=== PATIENT | female | born 1970 | race Caucasian/White ===

== ENCOUNTER 2016-06-02 20:35 | Emergency (ER) | payer BC ==
[2016-06-02] MEDS ORDERED: Acetaminophen/oxyCODONE 325-5 MG Tab PO ONE (22:43)
[2016-06-03 00:19] VITALS: BP 107/65
--- NOTE | 2016-06-03 00:34 | EDM.PDOC ---
ED HPI RENAL/ - General Chief Complaint: Flank Pain Stated Complaint: R BACK PAIN Time Seen by Provider: 06/02/16 22:32 Source: Reports: Patient History Limitations: Reports: No limitations - History of Present Illness INITIAL COMMENTS - FREE TEXT/NARRATIVE: This patient complains of pain in the right area for one week. She hasn't seen a doctor for this. She has a history of kidney stones and previously. She denies any fever she has had some chills. She feels a pulling sensation in the area. She denies burning on urination. She does admit to a history of urinary tract infections and some tiny kidney stones in the past. She has multiple sclerosis - Related Data Allergies/ADRs: Allergies Allergy/AdvReac Type Severity Reaction Status Date / Time erythromycin base Allergy Intermediate Hives Verified 11/19/15 21:19 [Erythromycin Base] Sulfa (Sulfonamide Allergy Intermediate Hives Verified 11/19/15 21:19 Antibiotics) Home Meds: Home Meds Cholecalciferol (Vitamin D3) [Vitamin D] 1,000 unit PO DAILY 11/09/12 [History] Furosemide [Lasix] 20 mg PO DAILY 11/09/12 [History] Ascorbic Acid/Multivit-Min [Emergen-C 1,000 mg Packet] 1 packet PO DAILY [History] Magnesium Citrate 100 gm MC DAILY 06/02/16 [History] Past Medical History HEENT History: Reports: Impaired vision Gastrointestinal History: Reports: Chronic constipation Genitourinary History: Reports: Pyelonephritis, UTI, recurrent 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: Endometriosis, 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, Musculoskeletal History: Reports: Fracture Neurological History: Reports: Concussion, MS Psychiatric History: Reports: ADD Immunologic History: Reports: Other (see below) Other Immunologic History: Pt has MS - Infectious Disease History Infectious Disease History: Reports: Chicken pox - Past Surgical History HEENT Surgical History: Reports: Adenoidectomy, Tonsillectomy GI Surgical History: Reports: Appendectomy, Cholecystectomy Female Surgical History: Reports: Hysterectomy, Salpingo-oophorectomy Social & Family History - Tobacco Use Smoking Status *Q: Never Smoker Second Hand Smoke Exposure: No - Caffeine Use Caffeine Use: Reports: Coffee - Alcohol Use Days Per Week of Alcohol Use: 1 Number of Drinks Per Day: 1 Total Drinks Per Week: 1 - Recreational Drug Use Recreational Drug Use: No ED ROS GENERAL - Review of Systems Review Of Systems: See Below Constitutional: Reports: chills HEENT: Reports: No symptoms Respiratory: Reports: No Symptoms Cardiovascular: Reports: No symptoms Endocrine: Reports: no symptoms GI/Abdominal: Reports: No symptoms : Reports: flank pain Musculoskeletal: Reports: no symptoms Skin: Reports: no symptoms Neurological: Reports: No Symptoms ED EXAM, RENAL/ - Physical Exam Exam: See Below Exam Limited By: No limitations General Appearance: alert, WD/WN, mild distress Eye Exam: bilateral eye: normal inspection Ears: normal external exam Throat/Mouth: Normal oropharynx Respiratory/Chest: no respiratory distress Cardiovascular: normal peripheral pulses, regular rate, rhythm GI/Abdominal: soft, non tender Back Exam: CVA tenderness (R) (There is moderate right CVA tenderness but there also seems to be some paraspinous muscle tenderness adjacent to this) Extremities: normal inspection Neurological: alert, oriented Psychiatric: normal affect Skin Exam: Warm, Dry Course - Vital Signs Last Recorded V/S: Last Vital Signs Temp 37.3 C 06/03/16 00:18 Pulse 78 06/03/16 00:18 Resp 16 06/03/16 00:18 BP 107/65 06/03/16 00:18 Pulse Ox 93 L 06/03/16 00:18 - Orders/Labs/Meds Labs: Laboratory Tests 06/02/16 06/02/16 06/02/16 Range/Units 21:10 23:19 23:32 WBC 11.2 H (4.5-11.0) K/uL RBC 4.50 (3.30-5.50) M/uL Hgb 12.9 (12.0-15.0) g/dL Hct 39.4 (36.0-48.0) % MCV 88 (80-98) fL MCH 29 (27-31) pg MCHC 33 (32-36) % Plt Count 182 (150-400) K/uL Neut % (Auto) 57 (36-66) % Lymph % (Auto) 27 (24-44) % [place] % (Auto) 13 H (2-6) % Eos % (Auto) 2 (2-4) % Baso % (Auto) 1 (0-1) % Sodium 142 (140-148) mmol/L Potassium 3.9 (3.6-5.2) mmol/L Chloride 105 (100-108) mmol/L Carbon Dioxide 28 (21-32) mmol/L Anion Gap 8.7 (5.0-14.0) mmol/L BUN 16 (7-18) mg/dL Creatinine 0.8 (0.6-1.0) mg/dL Est Cr Clr Drug Dosing 80.75 mL/min Estimated GFR (MDRD) > 60 (>60) Glucose 99 (74-106) mg/dL Calcium 8.3 L (8.5-10.1) mg/dL Total Bilirubin 0.2 (0.2-1.0) mg/dL AST 18 (15-37) U/L ALT 34 (12-78) U/L Alkaline Phosphatase 88 (46-116) U/L Total Protein 7.4 (6.4-8.2) g/dL Albumin 3.7 (3.4-5.0) g/dL Globulin 3.7 H (2.3-3.5) g/dL Albumin/Globulin Ratio 1.0 L (1.2-2.2) Urine Color Yellow Urine Appearance Slightly cloudy Urine pH 5.0 (4.5-8.0) Ur Specific [place] 1.005 L (1.008-1.030) Urine Protein Negative (NEGATIVE) mg/dL Urine Glucose (UA) Normal (NEGATIVE) mg/dL Urine Ketones Negative (NEGATIVE) mg/dL Urine Occult Blood Negative (NEGATIVE) Urine Nitrite Negative (NEGATIVE) Urine Bilirubin Negative (NEGATIVE) Urine Urobilinogen Normal (NORMAL) mg/dL Ur Leukocyte Esterase Moderate (NEGATIVE) Urine RBC Not seen (0-5) Urine WBC 5-10 H (0-5) Ur Epithelial Cells Rare Amorphous Sediment Rare Urine Bacteria Rare Urine Mucus Not seen Meds: Medications Discontinued Medications Generic Name Dose Route Start Last Admin Trade Name Freq PRN Reason Stop Dose Admin Oxycodone/Acetaminophen 2 tab 06/02/16 22:43 06/02/16 22:55 Percocet 325-5 Mg PO 06/02/16 22:44 2 tab ONETIME ONE Administration - Radiology Interpretation Free Text/Narrative:: CT scan showed no evidence of ureterolithiasis. There was a small soft tissue mass adjacent to the base of the bladder and urologic evaluation was recommended. - Re-Assessments/Exams Free Text/Narrative Re-Assessment/Exam: 06/04/16 07:11 Labs were reviewed there was some suggestion of urinary tract infection which was treated Departure - Departure Time of Disposition: 00:30 Disposition: Home, Self-Care 01 Condition: fair Clinical Impression: Flank pain, Urinary tract infection Instructions: Urinary Tract Infection, Adult, Flank Pain Referrals: Roger Goldman MD [Primary Care Provider] - Forms: ED Department Discharge Additional Instructions: The pain in your right flank could be caused by a urinary tract infection. There were some white blood cells in your urine to suggest an infection. A culture of the urine was sent and this will take a couple of days. Take the antibiotic Cipro 500 mg twice daily for 7-10 days. Take the pain medication Percocet 5/325, 20 tablets, one or 2 tablets every 4 hours as needed for pain. This medication can cause sedation and impair driving. It's also habit-forming if taken for more than a week or 2 It's also possible that the pain is just caused by muscle spasm in your back. If you're not better in 2 or 3 days then return to the ER or see your Dr. There appears to be a small area adjacent to your bladder that could be a little growth. It was recommended that you see a urologist for this.
== END 2016-06-03 00:59 | disposition home or self-care (01) ==
LOC: JP.ED 20:35
DX: N39.0 Urinary tract infection, site not specified (principal); R10.9 Unspecified abdominal pain; G35 Multiple sclerosis; Z90.49 Acquired absence of other specified parts of digestive tract; Z90.710 Acquired absence of both cervix and uterus; Z90.721 Acquired absence of ovaries, unilateral; Z98.890 Other specified postprocedural states; Z79.899 Other long term (current) drug therapy; Z88.1 Allergy status to other antibiotic agents; Z88.2 Allergy status to sulfonamides
CPT/HCPCS: 36415; 74176; 80053; 81001; 85025; 87086; 99284; A9270

== ENCOUNTER 2019-11-23 07:49 | Day surgery (SDC) | payer BC ==
[~2019-11-23 07:49] MED LIST: Midazolam 1 MG/ML 2 ML SDV ONE; Propofol 200 MG/20 ML SDV ONE; fentaNYL 100 MCG/2 ML SDV ONE
[2019-11-23] MEDS ORDERED: Dextrose 5%-Lactated Ringers 1,000 ML IV SCH (08:30)
[2019-11-23] MEDS ORDERED: Propofol 200 MG/20 ML SDV ONE (11:15)
[2019-11-23 12:34] VITALS: BP 117/76; PULSE 61
--- NOTE | 2019-12-02 07:16 | OR ---
DATE OF PROCEDURE: 11/23/2019 SURGEON: Feliz Taylor MD PREOPERATIVE DIAGNOSIS: History of rectal bleeding. POSTOPERATIVE DIAGNOSES: 1. History of rectal bleeding, likely secondary to excoriated hemorrhoids. 2. Single small polyp in proximal transverse colon. OPERATIVE PROCEDURE: Flexible colonoscopy with polypectomy by snare technique. ANESTHESIA: IV sedation. INDICATIONS FOR PROCEDURE: This is a 49-year-old presenting with history of some intermittent rectal bleeding. She has had family history of colon polyps and also has quite marked problems with chronic constipation, which is being managed with the assistance of Dr. Charly Coombs of the GI department in [place]. The plan is to proceed with a flexible colonoscopy with biopsies and/or polypectomy as indicated. Potential risks including bleeding and perforation were discussed, and the patient wishes to proceed. DETAILS OF PROCEDURE: The patient was taken to the operating room, placed in a left lateral decubitus position. IV sedation was administered, after which the initial digital rectal exam was performed and was unremarkable. Colonoscope was then passed into the rectum. Retroflexion revealed some fairly excoriated hemorrhoidal columns. These were not currently bleeding, but would likely be sources of intermittent bleeding based on their appearance. Otherwise, the scope was then passed to the level of the cecum. The prep was quite good with very minimal amount of liquid stool being present. The only additional abnormality was that of a roughly 8 mm polyp in the proximal transverse colon. This was encircled at its base with snare and removed and sent for histologic evaluation. Good hemostasis was confirmed at the polypectomy site. The scope was withdrawn and no additional abnormalities were noted and procedure was then concluded. At this point, we will await the pathology report on the polyp and notify the patient with regard to the correct interval followup colonoscopy timing. Otherwise, she will be continuing management of her constipation with primary care physicians as well as Dr. Coombs from [place]. Feliz Taylor MD /[id number]
== END 2019-11-23 12:50 | disposition home or self-care (01) ==
LOC: JP.SDS 07:49
PROVIDERS: ATTEND Surgery
DX: K63.5 Polyp of colon (principal); K64.9 Unspecified hemorrhoids; K21.9 Gastro-esophageal reflux disease without esophagitis
CPT/HCPCS: 45385; 88305; J2250; J2704; J3010; J7121

== ENCOUNTER 2020-09-30 16:37 | Emergency (ER) | payer BC ==
[2020-09-30] MEDS ORDERED: Meclizine 25 MG Tab PO ONE (16:50)
--- NOTE | 2020-09-30 16:56 | EDM.PDOC ---
ED HPI GENERAL MEDICAL PROBLEM - General Chief Complaint: Neuro Symptoms/Deficits Stated Complaint: PASSED OUT AT WORK Time Seen by Provider: 09/30/20 16:40 Source of Information: Reports: Patient, EMS, Old Records, RN History Limitations: Reports: No Limitations - History of Present Illness INITIAL COMMENTS - FREE TEXT/NARRATIVE: 50 yo female presents via EMS after a reported near syncopal episode at work. She says she was standing and suddenly the room started spinning. She denies nausea, but was a little sweaty. Vitals stable per EMS en route. Has only mild residual sx's now. No tx en route. Has a hx of currently inactive MS. Onset: Today, Sudden Onset Date: 09/30/20 Duration: Minutes:, Improving Location: Reports: Head Quality: Reports: Other (no pain reported) Severity: Severe Improves with: Reports: Other (time) Worsens with: Reports: Other (unknown) Context: Reports: Other (See HPI) Associated Symptoms: Reports: Diaphoresis, Syncope (near syncope reported by patient). 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) - Related Data Allergies Allergy/AdvReac Type Severity Reaction Status Date / Time Sulfa (Sulfonamide Allergy Intermediate Hives Verified 09/30/20 16:54 Antibiotics) erythromycin base AdvReac Intermediate Nausea and Verified 09/30/20 16:54 [Erythromycin Base] Vomiting prednisone AdvReac Nausea and Verified 09/30/20 16:54 Vomiting Home Meds: Home Meds Furosemide [Lasix] 20 mg PO DAILY 11/09/12 [History] Pantoprazole [ProTONIX] 40 mg PO ACBREAKFAST tab.cr 01/22/18 [Rx] Cholecalciferol (Vitamin D3) [Vitamin D3] 2,000 units PO DAILY 11/20/19 [History] Docusate Sodium [Colace] 100 mg PO BID 11/20/19 [History] Lubiprostone [Amitiza] 8 mcg PO BID 11/20/19 [History] Raloxifene [Evista] 60 mg PO DAILY 11/20/19 [History] L.acidoph,Paracasei, B.lactis [Probiotic] 1 each PO DAILY 08/31/20 [History] Magnesium 400 mg PO DAILY 08/31/20 [History] Past Medical History HEENT History: Reports: Allergic Rhinitis, Impaired Vision Other HEENT History: wears glasses Respiratory History: Reports: Bronchitis, Recurrent Gastrointestinal History: Reports: Chronic Constipation, GERD, Hiatal Hernia Genitourinary History: Reports: Pyelonephritis, Renal Calculus, UTI, Recurrent 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 left knee pain Neurological History: Reports: Concussion, MS Psychiatric History: Reports: ADD Immunologic History: Reports: Other (See Below) Other Immunologic History: MS - Infectious Disease History Infectious Disease History: Reports: Chicken Pox - Past Surgical History HEENT Surgical History: Reports: Adenoidectomy, Myringotomy w Tube(s), Tonsillectomy Respiratory Surgical History: Reports: None GI Surgical History: Reports: Appendectomy, Cholecystectomy, EGD, Meri Fundo plication, Other (See Below) Other GI Surgeries/Procedures: paraesophageal hernia repair with the Meri Female Surgical History: Reports: Hysterectomy, Salpingo-Oophorectomy Neurological Surgical History: Reports: None Musculoskeletal Surgical History: Reports: None Social & Family History - Family History Family Medical History: No Pertinent Family History Cardiac: Reports: Arrhythmia, Hypertension OBGYN: Reports: Other (See Below) Other OBGYN Family History: hyster Neurological: Reports: CVA Hematologic: Reports: Other (See Below) Other Hematologic Family History: Kiki - Caffeine Use Caffeine Use: Reports: Coffee ED ROS GENERAL - Review of Systems Review Of Systems: See Below Constitutional: Reports: No Symptoms HEENT: Reports: Vertigo Respiratory: Reports: No Symptoms Cardiovascular: Reports: No Symptoms Endocrine: Reports: No Symptoms GI/Abdominal: Reports: No Symptoms : Reports: No Symptoms Musculoskeletal: Reports: No Symptoms Skin: Reports: Diaphoresis Neurological: Reports: Dizziness ED EXAM, DIZZINESS - Physical Exam Exam: See Below Exam Limited By: No Limitations General Appearance: Alert, WD/WN, No Apparent Distress Eye Exam: Bilateral Eye: Normal Inspection, Nystagmus Nystagmus: constant Ears: Normal External Exam, Normal Canal, Hearing Grossly Normal, Normal TMs Nose: Normal Inspection, No Blood Throat/Mouth: Normal Inspection, Normal Lips, Normal Oropharynx, Normal Voice, No Airway Compromise Head Exam: Atraumatic, Normocephalic Neck: Normal Inspection Respiratory/Chest: No Respiratory Distress, Lungs Clear, Normal Breath Sounds, No Accessory Muscle Use Cardiovascular: Regular Rate, Rhythm, No Edema GI/Abdominal: Normal Bowel Sounds, Soft, Non-Tender, No Distention Neurological: Alert, Normal Mood/Affect, CN II-XII Intact, No Motor/Sensory Deficits, Oriented x 3 Back Exam: Normal Inspection. No: CVA Tenderness (R), CVA Tenderness (L) Extremities: Normal Inspection, Normal Range of Motion, Non-Tender, No Pedal Edema Psychiatric: Normal Affect, Normal Mood Skin Exam: Warm, Dry, Intact, Normal Color, No Rash Course - Vital Signs Last Recorded V/S: Last Vital Signs Temp 36.4 C 09/30/20 17:04 Pulse 57 L 09/30/20 17:39 Resp 19 09/30/20 17:39 BP 129/72 09/30/20 17:39 Pulse Ox 95 09/30/20 17:39 - Orders/Labs/Meds Meds: Medications Discontinued Medications Generic Name Dose Route Start Last Admin Trade Name Ann PRN Reason Stop Dose Admin Meclizine HCl 25 mg 09/30/20 16:50 Meclizine 25 Mg Tab PO 09/30/20 16:51 ONETIME ONE - Re-Assessments/Exams Free Text/Narrative Re-Assessment/Exam: 09/30/20 17:31 Is now completely asymptomatic. Is currently wearing a Holter put on by the [facility] for 2 prior syncopal spells. Describes today's spell now as not being vertigo, but more light-headed. Free Text/Narrative Re-Assessment/Exam: 09/30/20 17:42 Called [facility] cardiology, not able to see Holter reading at this time. Departure - Departure Time of Disposition: 17:45 Disposition: Home, Self-Care 01 Condition: Fair Clinical Impression: Syncope Qualifiers: Syncope type: unspecified Qualified Code(s): R55 - Syncope and collapse - Discharge Information *PRESCRIPTION DRUG MONITORING PROGRAM REVIEWED*: Not Applicable *COPY OF PRESCRIPTION DRUG MONITORING REPORT IN PATIENT OMAYRA: Not Applicable Instructions: Near-Syncope, [id number] Referrals: PCP,None [Primary Care Provider] - Forms: ED Department Discharge Additional Instructions: Turn in your Holter to [facility] to get a reading to see if today's episode has anything to do with your heart. Recheck as needed. Sepsis Event Note (ED) - Focused Exam Vital Signs: Vital Signs Temp Pulse Resp BP Pulse Ox 09/30/20 17:39 57 L 19 129/72 95 09/30/20 17:04 36.4 C 64 10 L 136/70 100 09/30/20 16:43 36.4 C 64 10 L 136/70 100
[2020-09-30 17:40] VITALS: BP 129/72; PULSE 57
== END 2020-09-30 18:01 | disposition home or self-care (01) ==
LOC: JP.ED 16:37
DX: R55 Syncope and collapse (principal); K21.9 Gastro-esophageal reflux disease without esophagitis; Z79.899 Other long term (current) drug therapy
CPT/HCPCS: 99283

== ENCOUNTER 2021-05-08 06:58 | Day surgery (SDC) | payer BC ==
[~2021-05-08 06:58] MED LIST changes: +Bupivacaine 0.5% 30 ML SDV ONE; -Midazolam 1 MG/ML 2 ML SDV ONE; -Propofol 200 MG/20 ML SDV ONE; -fentaNYL 100 MCG/2 ML SDV ONE
[2021-05-08] MEDS ORDERED: fentaNYL 100 MCG/2 ML SDV ONE (07:24)
[2021-05-08] MEDS ORDERED: Midazolam 1 MG/ML 2 ML SDV ONE (07:24)
[2021-05-08] MEDS ORDERED: Propofol 200 MG/20 ML SDV ONE ×2 (07:24→08:14)
[2021-05-08] MEDS ORDERED: Lactated Ringers 1,000 ML IV SCH (08:00)
[2021-05-08] MEDS: Nozin Nasal Sanitizer NASBOTH SCH ×2 (08:10→22:03)
[2021-05-08] MEDS ORDERED: Glycopyrrolate 0.2 MG/ML 5 ML MDV ONE (08:14)
[2021-05-08] MEDS ORDERED: Rocuronium 50 MG/5 ML Vial ONE (08:14)
[2021-05-08] MEDS ORDERED: Ondansetron 4 MG/2 ML SDV ONE (08:14)
[2021-05-08] MEDS ORDERED: Dexamethasone 4 MG/ML SDV ONE (08:14)
[2021-05-08] MEDS ORDERED: Neostigmine Methylsulfate 1 MG/ML 5 ML Syringe ONE (08:14)
[2021-05-08] MEDS ORDERED: fentaNYL 250 MCG/5 ML SDV ONE ×2 (08:14→09:25)
[2021-05-08] MEDS ORDERED: ceFAZolin 2 GM in Premix Bag 1 BAG IV ONE (08:30)
[2021-05-08] MEDS ORDERED: Sugammadex Sodium 200 MG/2 ML VIAL ONE (09:29)
[2021-05-08] MEDS ORDERED: HYDROmorphone 0.5 MG/0.5 ML Syringe IVPUSH PRN (10:24)
[2021-05-08] MEDS ORDERED: oxyCODONE 5 MG Tab PO PRN (10:24)
[2021-05-08] MEDS ORDERED: traMADol 50 MG Tab PO PRN (10:24)
[2021-05-08] MEDS ORDERED: Sodium Chloride 0.9% 1,000 ML IV SCH ×2 (10:30→19:56)
[2021-05-08] MEDS ORDERED: ceFAZolin 1 GM in Sodium Chloride 0.9% 50 ML IV SCH (10:30)
[2021-05-08] MEDS ORDERED: Ondansetron 4 MG/2 ML SDV IVPUSH PRN (10:51)
[2021-05-08] MEDS ORDERED: hydrOXYzine HCL 100 MG/2 ML SDV IM ONE (11:00)
[2021-05-08] MEDS ORDERED: Morphine 2 MG/ML SYRINGE IVPUSH ONE (11:00)
[2021-05-08] MEDS: Ketorolac 30 MG/ML SDV IVPUSH SCH ×2 (12:39→22:03)
[2021-05-08] MEDS: oxyCODONE 5 MG Tab PO PRN ×2 (12:59→19:45)
[2021-05-08] MEDS: LUBIPROSTONE 8 MCG PO SCH (16:26)
[2021-05-08] MEDS: Acetaminophen 500 MG Tab PO SCH ×2 (16:26→22:02)
[2021-05-08] MEDS: ceFAZolin 1 GM in Premix Bag 1 BAG IV SCH ×2 (16:27→23:58)
[2021-05-08] MEDS ORDERED: Nozin Nasal Sanitizer NASBOTH SCH (21:00)
[2021-05-08] MEDS: Docusate Sodium 100 MG Cap PO SCH (22:04)
[2021-05-09] MEDS: Acetaminophen 500 MG Tab PO SCH ×2 (04:45→11:37)
[2021-05-09] MEDS ORDERED: Pantoprazole 40 MG Tab.CR (PTOM) PO SCH (07:30)
[2021-05-09] MEDS: LUBIPROSTONE 8 MCG PO SCH (08:09)
[2021-05-09] MEDS: Docusate Sodium 100 MG Cap PO SCH (08:11)
[2021-05-09] MEDS: Nozin Nasal Sanitizer NASBOTH SCH (08:12)
[2021-05-09] MEDS: ceFAZolin 1 GM in Premix Bag 1 BAG IV SCH (08:17)
[2021-05-09] MEDS ORDERED: Furosemide 40 MG Tab (PTOM) PO SCH (09:00)
[2021-05-09] MEDS ORDERED: RALOXIFENE 60 MG PO SCH (09:00)
[2021-05-09] MEDS ORDERED: Furosemide 20 MG Tab PO SCH (09:00)
[2021-05-09] MEDS ORDERED: Enoxaparin 30 MG/0.3 ML Syringe SUBCUT SCH (09:00)
[2021-05-09 10:09] VITALS: BP 111/63; PULSE 70
[2021-05-09] MEDS: oxyCODONE 5 MG Tab PO PRN (11:29)
== END 2021-05-09 15:04 | disposition home or self-care (01) ==
LOC: JP.SDS 06:58 → EEVIPCON 06:58 → JP.MS 10:24 → JP.SDS 05-09 15:04
PROVIDERS: ATTEND Specialist
DX: M17.12 Unilateral primary osteoarthritis, left knee (principal); Z79.899 Other long term (current) drug therapy; Z88.2 Allergy status to sulfonamides; Z88.8 Allergy status to other drugs, medicaments and biological substances; Z98.890 Other specified postprocedural states
CPT/HCPCS: 36415; 73560-26-LT; 73560-LT; 80053; 85027; 93005; 93010; 97110-GP; 97116-GP; 97161-GP; 97530-GP; 97535-GP; A9270-GY; C1713; J0690; J1100; J1170; J1650; J1885; J2250; J2270; J2405; J2704; J2710; J3010; J3410; J3490; J7030; J7120

== ENCOUNTER 2021-12-01 20:23 | Emergency (ER) | payer OTHER ==
[2021-12-01 20:38] VITALS: BP 137/76; PULSE 68
[2021-12-01] MEDS ORDERED: Ondansetron 4 MG/2 ML SDV IVPUSH ONE (21:03)
[2021-12-01] MEDS ORDERED: Sodium Chloride 0.9% 10 ML Syringe FLUSH PRN (21:03)
[2021-12-01] MEDS ORDERED: Sodium Chloride 0.9% 1,000 ML IV ONE (21:18)
[2021-12-01] MEDS ORDERED: cefTRIAXone 1 GM in Sodium Chloride 0.9% 50 ML IV ONE (21:19)
== END 2021-12-01 22:20 | disposition home or self-care (01) ==
LOC: JP.ED 20:23
DX: N39.0 Urinary tract infection, site not specified (principal); Z88.1 Allergy status to other antibiotic agents; Z88.2 Allergy status to sulfonamides; Z79.899 Other long term (current) drug therapy; Z86.16 Personal history of COVID-19; Z90.49 Acquired absence of other specified parts of digestive tract; Z90.710 Acquired absence of both cervix and uterus
CPT/HCPCS: 36415; 80048; 81001; 85025; 86140; 96365; 96375; 99283; J0696; J2405; J3490; J7030

== ENCOUNTER 2022-05-24 16:48 | Emergency (ER) | payer OTHER ==
[2022-05-24] MEDS ORDERED: Acetaminophen 500 MG Tab PO ONE (17:28)
[2022-05-24 18:17] VITALS: BP 122/78; PULSE 52
== END 2022-05-24 18:15 | disposition home or self-care (01) ==
LOC: JP.ED 16:48
DX: S16.1XXA Strain of muscle, fascia and tendon at neck level, initial encounter (principal); S13.4XXA Sprain of ligaments of cervical spine, initial encounter; S40.012A Contusion of left shoulder, initial encounter; G44.319 Acute post-traumatic headache, not intractable; K21.9 Gastro-esophageal reflux disease without esophagitis; Z88.8 Allergy status to other drugs, medicaments and biological substances; Z79.899 Other long term (current) drug therapy; Z86.16 Personal history of COVID-19; Z88.2 Allergy status to sulfonamides; Z88.1 Allergy status to other antibiotic agents; V89.2XXA Person injured in unspecified motor-vehicle accident, traffic, initial encounter; Y92.410 Unspecified street and highway as the place of occurrence of the external cause
CPT/HCPCS: 71045; 72125; 73030; 76377; 99285; A9270

== ENCOUNTER 2022-08-08 16:03 | Emergency (ER) | payer OTHER ==
[2022-08-08] MEDS ORDERED: Aspirin 81 MG Tab.Chew PO ONE (16:09)
[2022-08-08] MEDS ORDERED: Morphine 4 MG/ML Syringe IVPUSH PRN (16:09)
[2022-08-08] MEDS ORDERED: Nitroglycerin 0.4 MG Tab.SL SL PRN (16:09)
[2022-08-08] MEDS ORDERED: Ondansetron 4 MG Tab.DIS PO ONE (16:11)
[2022-08-08 16:23] LABS: BASOPHILS ABSOLUTE AUTO 0.06 K/uL (0.00-0.10); BASOPHILS PERCENT AUTO 0.9 % (0.1-1.3); EOSINOPHILS ABSOLUTE AUTO 0.14 K/uL (0.00-0.40); HEMATOCRIT 37.9 % (34.3-46.0); HEMOGLOBIN 12.8 g/dL (11.2-15.5); IMMATURE GRAN PERCENT AUTO 0.3 % (0.0-0.7); LYMPHOCYTES ABSOLUTE AUTO 2.71 K/uL (0.8-3.3); LYMPHOCYTES PERCENT AUTO 38.5 % (11.4-47.7); MEAN CORPUSCULAR HEMOGLOBIN 31.2 pg (31.6-35.5); MEAN CORPUSCULAR HGB CONC 33.8 g/dL (31.6-35.5); MEAN CORPUSCULAR VOLUME 92.4 fL (81.4-99.0); MONOCYTES ABSOLUTE AUTO 0.88 K/uL (0.20-0.90); MONOCYTES PERCENT AUTO 12.5 % (3.3-12.6); NEUTROPHILS ABSOLUTE AUTO 3.22 K/uL (1.0-7.6); NEUTROPHILS PERCENT AUTO 45.8 % (40.0-78.1); PLATELET COUNT,PLT 186 K/uL (130-375)
[2022-08-08 16:24] LABS: IMMATURE GRAN ABSOLUTE AUTO 0.02 K/uL (0.00-0.23)
[2022-08-08 16:46] LABS: ALANINE AMINOTRANSFERASE,ALT 29 U/L (12-78); ALBUMIN 3.6 g/dL (3.4-5.0); ALKALINE PHOSPHATASE 74 U/L (46-116); ASPARTATE AMNIOTRANSFERASE,AST 25 U/L (15-37); BILIRUBIN TOTAL 0.4 mg/dL (0.2-1.0); BLOOD UREA NITROGEN,BUN 25 mg/dL (7-18); CALCIUM 8.4 mg/dL (8.5-10.1); CARBON DIOXIDE,CO2 27 mmol/L (21-32); CHLORIDE,CL 101 mmol/L (100-108); EST CRCL DRUG DOSING (CG) 58.12 mL/min; ESTIMATED GFR 69 mL/min (>60); GLUCOSE RANDOM 98 mg/dL (74-106); POTASSIUM,K 3.8 mmol/L (3.6-5.2); PROTEIN TOTAL,TP 7.2 g/dL (6.4-8.2); SODIUM,NA 135 mmol/L (140-148); TROPONIN I HIGH SENSITIVITY 5.2 pg/mL (<=60.3)
[2022-08-08 16:47] LABS: ANION GAP 10.8 mmol/L (5.0-14.0)
[2022-08-08 16:51] VITALS: PULSE 60
[2022-08-08 17:49] VITALS: BP 124/66
== END 2022-08-08 18:38 | disposition home or self-care (01) ==
LOC: JP.ED 16:03
DX: R07.89 Other chest pain (principal); K21.9 Gastro-esophageal reflux disease without esophagitis; Z86.16 Personal history of COVID-19; Z88.2 Allergy status to sulfonamides; Z88.1 Allergy status to other antibiotic agents; Z88.8 Allergy status to other drugs, medicaments and biological substances; Z79.899 Other long term (current) drug therapy
CPT/HCPCS: 36415; 71045; 80053; 84484; 85025; 93005; 99285; A9270; Q0162; 93010; 99283

== ENCOUNTER 2023-01-30 07:34 | Day surgery (SDC) | payer OTHER ==
[~2023-01-30 07:34] MED LIST changes: -Bupivacaine 0.5% 30 ML SDV ONE; +Bupivacaine 0.5% 50 ML MDV ONE
[2023-01-30 08:01] LABS: HEMATOCRIT 41.3 % (34.3-46.0); HEMOGLOBIN 14.2 g/dL (11.2-15.5); MEAN CORPUSCULAR HEMOGLOBIN 31.5 pg (31.6-35.5); MEAN CORPUSCULAR HGB CONC 34.4 g/dL (31.6-35.5); MEAN CORPUSCULAR VOLUME 91.6 fL (81.4-99.0); RED BLOOD CELL COUNT 4.51 M/uL (3.77-5.24); WHITE BLOOD CELL COUNT,WBC 5.3 K/uL (3.2-11.0)
[2023-01-30 08:27] LABS: ALANINE AMINOTRANSFERASE,ALT 31 U/L (12-78); ALBUMIN 3.8 g/dL (3.4-5.0); ALKALINE PHOSPHATASE 70 U/L (46-116); ANION GAP 9.4 mmol/L (5.0-14.0); ASPARTATE AMNIOTRANSFERASE,AST 22 U/L (15-37); BILIRUBIN TOTAL 0.3 mg/dL (0.2-1.0); BLOOD UREA NITROGEN,BUN 14 mg/dL (7-18); CALCIUM 8.4 mg/dL (8.5-10.1); CARBON DIOXIDE,CO2 27 mmol/L (21-32); CHLORIDE,CL 104 mmol/L (100-108); CREATININE 0.7 mg/dL (0.6-1.0); EST CRCL DRUG DOSING (CG) 84.77 mL/min; ESTIMATED GFR 105 mL/min (>60); GLUCOSE RANDOM 107 mg/dL (74-106); PROTEIN TOTAL,TP 7.8 g/dL (6.4-8.2); SODIUM,NA 140 mmol/L (140-148)
[2023-01-30] MEDS ORDERED: Nozin Nasal Sanitizer NASBOTH ONE (08:30)
[2023-01-30] MEDS ORDERED: ceFAZolin 2 GM in Sodium Chloride 0.9% 50 ML IV ONE (09:00)
[2023-01-30] MEDS ORDERED: Lactated Ringers 1,000 ML IV SCH (09:00)
[2023-01-30] MEDS ORDERED: Ondansetron 4 MG/2 ML SDV ONE (11:07)
[2023-01-30] MEDS ORDERED: Neostigmine Methylsulfate 10 MG/10 ML MDV ONE (11:07)
[2023-01-30] MEDS ORDERED: Rocuronium 50 MG/5 ML Vial ONE (11:07)
[2023-01-30] MEDS ORDERED: Propofol 200 MG/20 ML SDV ONE (11:07)
[2023-01-30] MEDS ORDERED: Glycopyrrolate 0.2 MG/ML 5 ML MDV ONE (11:07)
[2023-01-30] MEDS ORDERED: fentaNYL 250 MCG/5 ML SDV ONE (11:07)
[2023-01-30] MEDS ORDERED: Dexamethasone 4 MG/ML SDV ONE (11:07)
[2023-01-30] MEDS ORDERED: Sugammadex Sodium 200 MG/2 ML VIAL ONE (12:56)
[2023-01-30] MEDS: Acetaminophen/HYDROcodone 325-5 MG Tab PO PRN ×2 (15:30→16:21)
[2023-01-30 16:06] VITALS: BP 121/69; PULSE 59
== END 2023-01-30 16:35 | disposition home or self-care (01) ==
LOC: JP.SDS 07:34
PROVIDERS: ATTEND Specialist
DX: S73.101A Unspecified sprain of right hip, initial encounter (principal); K21.9 Gastro-esophageal reflux disease without esophagitis; E66.9 Obesity, unspecified; Z68.32 Body mass index [BMI] 32.0-32.9, adult; X58.XXXA Exposure to other specified factors, initial encounter; Z87.891 Personal history of nicotine dependence; Z79.899 Other long term (current) drug therapy; Z88.8 Allergy status to other drugs, medicaments and biological substances
CPT/HCPCS: 29862; 36415; 76000; 80053; 85027; A9270; J2405; J2704; J3010; J3490; J7120; J1100; J2710

== ENCOUNTER 2023-04-01 08:56 | Day surgery (SDC) | payer OTHER ==
[2023-04-01] MEDS ORDERED: fentaNYL 250 MCG/5 ML SDV ONE ×2 (09:03→13:02)
[2023-04-01] MEDS ORDERED: Neostigmine Methylsulfate 10 MG/10 ML MDV ONE (09:04)
[2023-04-01] MEDS ORDERED: Propofol 200 MG/20 ML SDV ONE (09:04)
[2023-04-01] MEDS ORDERED: Dexamethasone 4 MG/ML SDV ONE (09:04)
[2023-04-01] MEDS ORDERED: Rocuronium 50 MG/5 ML Vial ONE ×2 (09:04→12:55)
[2023-04-01] MEDS ORDERED: Ondansetron 4 MG/2 ML SDV ONE (09:04)
[2023-04-01] MEDS ORDERED: Glycopyrrolate 0.2 MG/ML 5 ML MDV ONE (09:04)
[2023-04-01 09:33] LABS: HEMATOCRIT 38.1 % (34.3-46.0); HEMOGLOBIN 13.2 g/dL (11.2-15.5); MEAN CORPUSCULAR HEMOGLOBIN 31.3 pg (31.6-35.5); MEAN CORPUSCULAR HGB CONC 34.6 g/dL (31.6-35.5); MEAN CORPUSCULAR VOLUME 90.3 fL (81.4-99.0); RED BLOOD CELL COUNT 4.22 M/uL (3.77-5.24); WHITE BLOOD CELL COUNT,WBC 6.2 K/uL (3.2-11.0)
[2023-04-01 09:52] LABS: A/G RATIO 0.9 (1.2-2.2); ALANINE AMINOTRANSFERASE,ALT 29 U/L (12-78); ALBUMIN 3.3 g/dL (3.4-5.0); ALKALINE PHOSPHATASE 71 U/L (46-116); ANION GAP 5.5 mmol/L (5.0-14.0); ASPARTATE AMNIOTRANSFERASE,AST 23 U/L (15-37); BILIRUBIN TOTAL 0.3 mg/dL (0.2-1.0); BLOOD UREA NITROGEN,BUN 13 mg/dL (7-18); CALCIUM 7.9 mg/dL (8.5-10.1); CARBON DIOXIDE,CO2 30 mmol/L (21-32); CHLORIDE,CL 105 mmol/L (100-108); CREATININE 0.7 mg/dL (0.6-1.0); EST CRCL DRUG DOSING (CG) 85.56 mL/min; ESTIMATED GFR 105 mL/min (>60); GLUCOSE RANDOM 108 mg/dL (74-106); POTASSIUM,K 3.8 mmol/L (3.6-5.2); SODIUM,NA 140 mmol/L (140-148)
[2023-04-01] MEDS: Lactated Ringers 1,000 ML IV SCH (10:01)
[2023-04-01] MEDS: Nozin Nasal Sanitizer NASBOTH SCH (10:03)
[2023-04-01] MEDS ORDERED: Lactated Ringers 1,000 ML ONE (14:00)
[2023-04-01] MEDS: Bupivacaine 0.5% 30 ML SDV ONE (14:23)
[2023-04-01] MEDS: Acetaminophen/oxyCODONE 325-5 MG Tab PO PRN (15:11)
[2023-04-01 15:15] VITALS: BP 152/76; PULSE 60
== END 2023-04-01 16:00 | disposition home or self-care (01) ==
LOC: JP.SDS 08:56
PROVIDERS: ATTEND Specialist
DX: S83.512A Sprain of anterior cruciate ligament of left knee, initial encounter (principal); K21.9 Gastro-esophageal reflux disease without esophagitis; I10 Essential (primary) hypertension; Z88.2 Allergy status to sulfonamides; X58.XXXA Exposure to other specified factors, initial encounter
CPT/HCPCS: 29888; 36415; 80053; 85027; A9270; C1713; C1762; J0665; J0690; J2405; J2704; J2710; J3010; J3490; J7120; J1100